=== PATIENT | male | born 1990 | race African-American/Black ===

== ENCOUNTER 2017-01-08 22:12 | Emergency (ER) | payer BC, OTHER ==
[2017-01-08 22:20] VITALS: BP 153/81
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
== END 2017-01-08 23:16 | disposition home or self-care (01) ==
LOC: ER 22:12
DX: M25.512 Pain in left shoulder (principal); M54.2 Cervicalgia; V49.40XA Driver injured in collision with unspecified motor vehicles in traffic accident, initial encounter; Y93.89 Activity, other specified; Y92.410 Unspecified street and highway as the place of occurrence of the external cause; Y99.8 Other external cause status; F12.10 Cannabis abuse, uncomplicated
CPT/HCPCS: 99281

== ENCOUNTER 2019-01-18 04:33 | Emergency (ER) | payer OTHER ==
[~2019-01-18] VITALS: Ht 177.8 cm; Wt 99.8 kg
[2019-01-18 04:39] VITALS: BP 156/92
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
== END 2019-01-18 05:23 | disposition home or self-care (01) ==
LOC: ER 04:33 → EEVIPCON 04:33 → ER 05:23
DX: T74.21XA Adult sexual abuse, confirmed, initial encounter (principal); K62.89 Other specified diseases of anus and rectum
CPT/HCPCS: 99281